=== PATIENT | male | born 1935 | race Caucasian/White ===

== ENCOUNTER 2017-06-08 12:38 | Emergency (ER) | payer MEDICARE, BC ==
[2017-06-08 13:19] VITALS: BP 212/96
--- NOTE | 2017-06-08 13:27 | EDM.PDOC ---
ED HPI GENERAL MEDICAL PROBLEM - General Chief Complaint: Upper Extremity Injury/Pain Stated Complaint: BUMP LT HAND Time Seen by Provider: 06/08/17 13:26 Source of Information: Reports: Patient, Family History Limitations: Reports: No Limitations - History of Present Illness INITIAL COMMENTS - FREE TEXT/NARRATIVE: pt was working with a hot water heater and the element hit him in the rt hand. he has a good sized swelling on the dorsal aspect of the hand. Onset: Today Duration: Hour(s): Location: Reports: Upper Extremity, Right Associated Symptoms: Reports: No Other Symptoms - Related Data Allergies Allergy/AdvReac Type Severity Reaction Status Date / Time No Known Allergies Allergy Verified 03/12/16 10:36 Home Meds: Home Meds Lisinopril [Lisinopril] 5 mg PO DAILY 03/12/16 [History] Metoprolol Tartrate 50 mg PO BID 03/12/16 [History] Triamterene/Hydrochlorothiazid [Triamterene-HCTZ 75-50 MG] 1 tab PO DAILY [History] Past Medical History HEENT History: Reports: Cataract Cardiovascular History: Reports: Hypertension Musculoskeletal History: Reports: Arthritis, Other (See Below) Other Musculoskeletal History: chronic knee pain Endocrine/Metabolic History: Reports: Obesity/BMI 30+ - Past Surgical History HEENT Surgical History: Reports: Cataract Surgery Social & Family History - Tobacco Use Smoking Status *Q: Never Smoker - Caffeine Use Caffeine Use: Reports: None - Recreational Drug Use Recreational Drug Use: No Review of Systems - Review of Systems Review Of Systems: See Below Constitutional: Reports: No Symptoms Eyes: Reports: No Symptoms Ears: Reports: No Symptoms Nose: Reports: No Symptoms Mouth/Throat: Reports: No Symptoms Respiratory: Reports: No Symptoms Cardiovascular: Reports: No Symptoms GI/Abdominal: Reports: No Symptoms Genitourinary: Reports: No Symptoms Musculoskeletal: Reports: Other ( pt has swelling on the dorsal aspect of the hand/.) Skin: Reports: No Symptoms ED EXAM, GENERAL - Physical Exam Exam: See Below Free Text/Narrative:: Pt arrived with a swelling which looked like a hematoma of the dorsal rt hand. Exam Limited By: No Limitations General Appearance: Alert, Other (pupils equal and reactive. ) Ears: Normal TMs, Other ( Pt has alot of wax in his ears. ) Nose: Normal Inspection Throat/Mouth: Normal Inspection Head: Atraumatic Neck: Normal Inspection, Other ( no evidence of carotid bruits) Respiratory/Chest: No Respiratory Distress Cardiovascular: Regular Rate, Rhythm GI/Abdominal: Soft, Non-Tender (Male) Exam: Deferred Rectal (Males) Exam: Deferred Back Exam: Normal Inspection Extremities: Normal Inspection Neurological: Alert, Oriented, Normal Cognition Course - Vital Signs Last Recorded V/S: Last Vital Signs Temp 35.8 C 06/08/17 13:16 Pulse 80 06/08/17 13:16 Resp 16 06/08/17 13:16 BP 212/96 H 06/08/17 13:16 Pulse Ox 96 06/08/17 13:16 - Orders/Labs/Meds Orders: Active Orders 24 hr Category Date Time Status Hand Comp Min 3V Lt [CR] Stat Exams 06/08/17 13:24 Taken - Re-Assessments/Exams Free Text/Narrative Re-Assessment/Exam: 06/08/17 14:24 xray of the hand reveals no fracture present. Departure - Departure Time of Disposition: 14:16 Disposition: Home, Self-Care 01 Condition: Fair Clinical Impression: Traumatic hematoma of right hand - Discharge Information Instructions: Contusion Referrals: PCP,None [Primary Care Provider] - Forms: ED Department Discharge Care Plan Goals: elevate cool pack asher wrap on and off. expect that the hand will become very discolored. - My Orders Last 24 Hours: My Active Orders 06/08/17 13:24 Hand Comp Min 3V Lt [CR] Stat - Assessment/Plan Last 24 Hours: My Active Orders 06/08/17 13:24 Hand Comp Min 3V Lt [CR] Stat
--- NOTE | 2017-06-10 09:23 | CR ---
Hand Comp Min 3V Lt HISTORY: Swelling COMPARISON: None FINDINGS: No acute fracture or dislocation. No bony destructive process seen. Moderate arthritic sterling ge at the base of the thumb.
== END 2017-06-08 14:24 | disposition home or self-care (01) ==
LOC: JP.ED 12:38
DX: S60.221A Contusion of right hand, initial encounter (principal); I10 Essential (primary) hypertension; E66.9 Obesity, unspecified; W22.8XXA Striking against or struck by other objects, initial encounter
CPT/HCPCS: 73130-26-LT; 73130-LT; 99284